=== PATIENT | male | born 1985 | race Hispanic/Latino ===

== ENCOUNTER 2017-08-21 15:16 | Emergency (ER) | payer OTHER ==
[2017-08-21] MEDS ORDERED: Fluorescein Opthalmic Strip ONE (15:26)
== END 2017-08-21 16:00 | disposition home or self-care (01) ==
LOC: NAV ERS 15:16
DX: T15.01XA Foreign body in cornea, right eye, initial encounter (principal)
CPT/HCPCS: 65222